=== PATIENT | female | born 1980 | race Asian ===

== ENCOUNTER 2016-10-09 09:17 | Day surgery (SDC) | payer MEDICAID ==
[2016-10-09 09:55] VITALS: BP 125/77
[2016-10-09] MEDS ORDERED: D5LR 1,000 ML IV SCH (10:45)
[2016-10-09 10:53] LABS: % BASOPHILS 0.5 % (0.0-2.0); % EOSINOPHILS 4.2 % (0.0-5.0); % LYMPHOCYTES 27.4 % (20.0-50.0); % MONOCYTES 5.2 % (2.0-10.0); % NEUTROPHILS 62.7 % (40.0-80.0); HEMATOCRIT 35.1 % (35.0-45.0); HEMOGLOBIN 11.9 gm/dL (11.7-15.5); MEAN CELL VOLUME 86.6 fl (81-100); MEAN CORPUSCULAR HEMOGLOBIN 29.3 pg (27.0-31.0); MEAN CORPUSCULAR HGB CONC 33.9 pg (28.0-36.0); MEAN PLATELET VOLUME 8.5 fl; NEUTROPHILE ABSOLUTE 3.8 Th/cmm (1.8-8.0); PLATELET COUNT 211 Th/cmm (150-400); RED BLOOD COUNT 4.05 Mil/cmm (3.80-5.10); RED CELL DISTRIBUTION WIDTH 13.1 % (11.5-20.0); WHITE BLOOD COUNT 5.9 Th/cmm (4.8-10.8)
[2016-10-09 11:09] LABS: INR 1.12 (0.5-1.4); PROTHROMBIN TIME (TEST) 11.2 SECONDS (9.5-11.5)
[2016-10-09] MEDS ORDERED: Meperidine 25 mg/mL 1mL Syr IVP PRN (12:30)
[2016-10-09] MEDS ORDERED: Lactated Ringer 1,000 ML IV SCH (12:30)
--- NOTE | 2016-10-10 12:53 | Pathology Report ---
[id number] Collection date: 10/09/2016 Surgeon: Dr. Eloy Kingsley Specimen Description: Uterine contents. Gross Description: Received in formalin are multiple irregular anderson-pink soft tissue fragments aggregating to 1.8 x 1.5 x 0.5 cm. Totally submitted in two cassettes labeled A1 and A2. Microscopic Description: The histologic sections show endometrial mucosa admixed with decidualized tissue with chorionic villi identified. Diagnosis: Chorionic villi identified consistent with products of conception (uterine contents). [facility]# [id number] [facility]
--- NOTE | 2016-10-12 14:12 | Operative Report ---
PREOPERATIVE DIAGNOSIS: Missed . POSTOPERATIVE DIAGNOSIS: Missed . OPERATION: Suction D and C. ANESTHESIA: General. ANESTHESIOLOGIST: Alec Thompson M.D. SURGEON: Luis Kingsley M.D. DETAILS OF PROCEDURE: Under satisfactory general anesthesia, the patient was placed in lithotomy position. Perineum and vagina were prepped with Betadine and draped in the usual manner. Then, a weighted speculum was placed in the vagina and the anterior lip of cervix was grasped with Allis clamp. Then, endocervical canal was gradually dilated and #7 flexible cannula was inserted. Suction was begun. A small amount of tissue was obtained. Procedure was continued until normal tissue was obtained. Procedure terminated at this point. The patient tolerated the procedure well and transferred to recovery room in good condition, stable vital signs. Estimated blood loss was minimum. JOB# [id number] MTDD
== END 2016-10-09 14:30 | disposition home or self-care (01) ==
LOC: MSII 09:17
PROVIDERS: ATTEND Obstetrics & Gynecology
DX: O02.1 Missed abortion (principal); Z3A.01 Less than 8 weeks gestation of pregnancy
CPT/HCPCS: 59820; 36415; 84702; 85025; 85610; J2704; J7121; 88305-90; J2001; Z7512; Z7610